=== PATIENT | female | born 1975 | race Caucasian/White ===

== ENCOUNTER 2019-03-18 12:52 | Outpatient (CLI) | payer BC ==
--- NOTE | 2019-03-18 13:46 | MMO ---
Bilateral MAMMO Bilat Diag [facility]. CLINICAL HISTORY: Patient is 43 years old and is seen for diagnostic exam. The patient has no family history of breast cancer. The patient has no personal history of cancer. VIEWS: The views performed were: bilateral craniocaudal; bilateral craniocaudal with tomosynthesis; bilateral mediolateral oblique; bilateral mediolateral oblique with tomosynthesis; and bilateral mediolateral. FILMS COMPARED: The present examination has been compared to prior imaging studies performed at [facility] on 02/18/2016, 02/24/2016 and 06/06/2017. MAMMOGRAM FINDINGS: There are scattered fibroglandular densities. There is a stable asymmetry seen in the left breast. Tomosynthesis images show the abnormality to represent superimpostion of normal breast parenchyma. There are no suspicious masses, suspicious calcifications, or new areas of architectural distortion. IMPRESSION: THERE IS NO MAMMOGRAPHIC EVIDENCE OF MALIGNANCY. A ROUTINE FOLLOW-UP MAMMOGRAM IN 1 YEAR IS RECOMMENDED. THE RESULTS OF THIS EXAM WERE SENT TO THE PATIENT. ACR BI-RADS Category 2 - Benign finding MAMMOGRAPHY NOTE: 1. A negative mammogram report should not delay a biopsy if a dominant of clinically suspicious mass is present. 2. Approximately 10% to 15% of breast cancers are not detected by mammography. 3. Adenosis and dense breasts may obscure an underlying neoplasm.
== END 2019-03-18 12:53 | disposition home or self-care (01) ==
LOC: BICMAMMO 12:52
PROVIDERS: ATTEND Physician Assistant
DX: R92.8 Other abnormal and inconclusive findings on diagnostic imaging of breast (principal)
CPT/HCPCS: 77066; G0279

== ENCOUNTER 2020-04-09 13:31 | Outpatient (CLI) | payer BC ==
--- NOTE | 2020-04-09 15:45 | MMO ---
Bilateral MAMMO Bilat Screen [facility]. CLINICAL HISTORY: Patient is 44 years old and is seen for screening. The patient has no family history of breast cancer. The patient has no personal history of cancer. VIEWS: The views performed were: bilateral craniocaudal with tomosynthesis and bilateral mediolateral oblique with tomosynthesis. FILMS COMPARED: The present examination has been compared to prior imaging studies performed at [facility] on 02/18/2016, 02/24/2016, 06/06/2017 and 03/18/2019. This study has been interpreted with the assistance of computer-aided detection. MAMMOGRAM FINDINGS: There are scattered fibroglandular densities. There is a stable focal asymmetry measuring 25 millimeters seen in the central region of the left breast. There are no suspicious masses, suspicious calcifications, or new areas of architectural distortion. IMPRESSION: THERE IS NO MAMMOGRAPHIC EVIDENCE OF MALIGNANCY. A ROUTINE FOLLOW-UP MAMMOGRAM IN 1 YEAR IS RECOMMENDED. THE RESULTS OF THIS EXAM WERE SENT TO THE PATIENT. ACR BI-RADS Category 2 - Benign finding MAMMOGRAPHY NOTE: 1. A negative mammogram report should not delay a biopsy if a dominant of clinically suspicious mass is present. 2. Approximately 10% to 15% of breast cancers are not detected by mammography. 3. Adenosis and dense breasts may obscure an underlying neoplasm. Reported by: INDIGO HANNA MD Electonically Signed: [id number]
== END 2020-04-09 13:32 | disposition home or self-care (01) ==
LOC: BICMAMMO 13:31
PROVIDERS: ATTEND Physician Assistant
DX: Z12.31 Encounter for screening mammogram for malignant neoplasm of breast (principal)
CPT/HCPCS: 77063; 77067

== ENCOUNTER 2021-04-13 11:16 | Outpatient (CLI) | payer BC | END 2021-04-13 11:17 | disposition home or self-care (01) | LOC: BICMAMMO 11:16 | PROVIDERS: ATTEND Physician Assistant | DX: Z12.31 Encounter for screening mammogram for malignant neoplasm of breast (principal) | CPT/HCPCS: 77063; 77067 ==

== ENCOUNTER 2022-02-14 16:25 | Outpatient (CLI) | payer BC | END 2022-02-14 16:26 | disposition home or self-care (01) | LOC: SCSRAD 16:25 | PROVIDERS: ATTEND Physician Assistant | DX: M25.561 Pain in right knee (principal); M25.461 Effusion, right knee; M25.462 Effusion, left knee; M25.861 Other specified joint disorders, right knee; M25.862 Other specified joint disorders, left knee | CPT/HCPCS: 73565 ==

== ENCOUNTER 2022-04-14 12:38 | Outpatient (CLI) | payer BC | END 2022-04-14 12:39 | disposition home or self-care (01) | LOC: BICMAMMO 12:38 | PROVIDERS: ATTEND Physician Assistant | DX: Z12.31 Encounter for screening mammogram for malignant neoplasm of breast (principal) | CPT/HCPCS: 77063; 77067 ==

== ENCOUNTER 2022-09-05 18:34 | Emergency (ER) | payer BC | END 2022-09-05 21:21 | disposition home or self-care (01) | LOC: ERS 18:34 | DX: S82.61XA Displaced fracture of lateral malleolus of right fibula, initial encounter for closed fracture (principal); W10.1XXA Fall (on)(from) sidewalk curb, initial encounter | CPT/HCPCS: 29515 ==

== ENCOUNTER 2022-09-30 09:19 | Observation (INO) | payer BC ==
[2022-09-30] MEDS ORDERED: Iopamidol 370 76% 100 ML VIAL ONE (10:44)
[2022-09-30 11:25] LABS: #Basophils 0.1 thou/uL (0.0-0.2); #Eosinphils 0.1 thou/uL (0.0-0.7); #Lymphocytes 1.5 thou/uL (1.20-3.40); #Monocytes 0.7 thou/uL (0.11-0.59); #Neutrophils 2.8 thou/uL (1.40-6.50); %Basophils 1.6 % (0.0-1.0); %Eosinophils 2.4 % (0.0-10.0); %Lymphocytes 28.5 % (21.0-51.0); %Monocytes 13.1 % (0.0-10.0); %Neutrophils 54.4 % (42.0-75.0); Hemoglobin 14.3 g/dL (12.0-16.0); Mean Corpuscular HGB CONC 34.4 g/dL (32.0-36.0); Mean Corpuscular Hemoglobin 31.2 pg (27.0-31.0); Mean Corpuscular Volume 90.7 fl (78.0-98.0); Mean Platelet Volume 8.3 fL (7.4-10.4); Platelet Count 462 10x3/uL (130-400); RBC Distribution Width 12.7 % (11.5-14.5); Red Blood Cell (RBC) Count 4.57 mill/uL (4.20-5.40); White Blood Cell (WBC) Count 5.1 10x3/uL (4.8-10.8)
[2022-09-30 11:40] LABS: BHCG - Serum Negative (NEGATIVE); Pregs Control Background? CLEAR/WHITE (CLR/WHITE); Pregs Control Bar Appear? YES (CONTROL BAR)
[2022-09-30] MEDS ORDERED: Prochlorperazine 10 MG/2 ML VIAL ONE (11:48)
[2022-09-30] MEDS ORDERED: Morphine 4 MG/ML VIAL ONE (11:48)
[2022-09-30 11:56] LABS: ALT (SGPT) 127 U/L (8-55); AST (SGOT) 108 U/L (5-34); Albumin 4.2 g/dL (3.5-5.0); Alkaline Phosphatase 56 U/L (40-110); Anion Gap 17 mmol/L (10-20); BUN (Urea Nitrogen) 24 mg/dL (7.0-18.7); Bilirubin, Total 0.8 mg/dL (0.2-1.2); CK (CPK) 51 U/L (29-168); Calc. Creatinine Clearance 0 mL/min (70-130); Calcium 10.2 mg/dL (7.8-10.44); Carbon Dioxide 25 mmol/L (22-29); Chloride 96 mmol/L (98-107); Estimated GFR 73; Globulin 3.5 g/dL (2.4-3.5); Glucose 102 mg/dL (70-105); Lipase 72 U/L (8-78); Magnesium 1.7 mg/dL (1.6-2.6); Potassium 3.6 mmol/L (3.5-5.1); Protein, Total 7.7 g/dL (6.0-8.3); Sodium 134 mmol/L (136-145)
[2022-09-30 12:03] LABS: Actual Bicarbonate (HCO3v) 24 mEq/L (22-28); Base Excess 0.3 mEq/L (-2.0 to +3.0); Calcium, Ionized (venous) 1.11 mmol/L (1.16-1.32); Chloride (VBG) 99 mmol/L (98-106); Potassium (VBG) 3.68 mmol/L (3.70-5.30); Sodium 135.5 mmol/L (133-146); pH (venous) 7.46 (7.32-7.43)
[2022-09-30 13:48] LABS: Acetaminophen Less than 10.0 mcg/mL (10.0-30.0)
[2022-09-30 14:05] LABS: HBSAg Index 0.24 S/CO (0-0.99); Hep A IgM AB Non-Reactive (NonReactive); Hep A IgM S/CO 0.14 S/CO (0-0.79); Hep B Surf Ag Non-Reactive S/CO (NonReactive); Hep C IgG Ab Non-Reactive (NonReactive); Hep C Index 0.07 S/CO (0-0.79); Hepatitis B Core IgM Abs Non-Reactive (NonReactive)
[2022-09-30 14:51] LABS: SARS-CoV-2 NAA Rapid Test Not Detected (NotDetected)
[2022-09-30] MEDS ORDERED: Ondansetron PF 4 MG/2 ML Vial ONE (17:11)
[2022-09-30] MEDS ORDERED: Acetaminophen 325 MG TAB PO PRN (17:55)
[2022-09-30] MEDS: Enoxaparin Sodium 40 MG/0.4 ML SYRINGE SC SCH ×3 (21:29→21:35)
[2022-09-30] MEDS: Famotidine 20 MG TAB PO SCH (21:29)
[2022-09-30] MEDS: Sodium Chloride 0.9% 1,000 ML IV SCH (21:32)
[2022-09-30] MEDS: Ondansetron PF 4 MG/2 ML Vial IVP PRN (21:44)
[2022-10-01] MEDS: Ondansetron PF 4 MG/2 ML Vial IVP PRN ×2 (03:12→09:26)
[2022-10-01] MEDS: Sodium Chloride 0.9% 1,000 ML IV SCH ×2 (04:37→09:26)
[2022-10-01] MEDS: Levothyroxine Sodium 50 MCG TAB PO SCH (05:41)
[2022-10-01] MEDS: clonazePAM 0.5 MG TAB PO SCH (05:41)
[2022-10-01] MEDS: busPIRone HCl 5 MG TAB PO SCH (08:41)
[2022-10-01] MEDS: Nebivolol HCl 5 MG TAB PO SCH (08:41)
[2022-10-01] MEDS: FLUoxetine HCl 20 MG CAP PO SCH ×2 (08:42→20:38)
[2022-10-01] MEDS: Fenofibrate 48 MG TAB PO SCH (08:42)
[2022-10-01] MEDS: Fenofibrate Nanocrystallized 145 MG TAB PO SCH (08:42)
[2022-10-01] MEDS: Atorvastatin Calcium 40 MG TAB PO SCH (08:42)
[2022-10-01] MEDS: Loratadine 10 MG TAB PO SCH (08:42)
[2022-10-01] MEDS: Famotidine 20 MG TAB PO SCH ×2 (08:42→20:38)
[2022-10-01] MEDS: Lisinopril 10 MG TAB PO SCH (08:44)
[2022-10-01] MEDS ORDERED: FLU VACC QS2022-23(6MOS UP)/PF 60 MCG/0.5 ML SYRINGE IM ONE (09:00)
[2022-10-01] MEDS ORDERED: FENOFIBRATE 40 MG PO SCH (09:00)
[2022-10-01] MEDS ORDERED: Sodium Chloride 0.9% 500 ML IV SCH (23:15)
[2022-10-02] MEDS: clonazePAM 0.5 MG TAB PO SCH ×2 (00:08→10:00)
[2022-10-02] MEDS: Sodium Chloride 0.9% 1,000 ML IV SCH ×2 (03:15)
[2022-10-02 04:49] VITALS: BMI 46.3
[2022-10-02] MEDS: Levothyroxine Sodium 50 MCG TAB PO SCH (05:34)
[2022-10-02] MEDS: busPIRone HCl 5 MG TAB PO SCH (11:05)
[2022-10-02] MEDS: Famotidine 20 MG TAB PO SCH (11:05)
[2022-10-02] MEDS: FLUoxetine HCl 20 MG CAP PO SCH (11:06)
[2022-10-02] MEDS: Lisinopril 10 MG TAB PO SCH (11:07)
[2022-10-02] MEDS: Fenofibrate Nanocrystallized 145 MG TAB PO SCH (11:07)
[2022-10-02] MEDS: Loratadine 10 MG TAB PO SCH (11:07)
[2022-10-02] MEDS: Atorvastatin Calcium 40 MG TAB PO SCH (11:07)
[2022-10-02] MEDS: Fenofibrate 48 MG TAB PO SCH (11:07)
[2022-10-02] MEDS: Nebivolol HCl 5 MG TAB PO SCH (11:07)
[2022-10-02 12:42] VITALS: BP 113/70; TEMP 97.7
== END 2022-10-02 15:55 | disposition home or self-care (01) ==
LOC: SUATTDRO 09:19 → ERS 09:19 → T4-B 18:53
PROVIDERS: ADMIT Internal Medicine; ATTEND Internal Medicine
DX: R11.2 Nausea with vomiting, unspecified (principal); I10 Essential (primary) hypertension; E78.5 Hyperlipidemia, unspecified; S82.61XA Displaced fracture of lateral malleolus of right fibula, initial encounter for closed fracture; N13.30 Unspecified hydronephrosis; E66.9 Obesity, unspecified; Z68.42 Body mass index [BMI] 45.0-49.9, adult; Z79.890 Hormone replacement therapy; Z79.899 Other long term (current) drug therapy; Z20.822 Contact with and (suspected) exposure to COVID-19; W18.30XA Fall on same level, unspecified, initial encounter
CPT/HCPCS: 71046; 74177; 76705; 80053; 80074; 80143; 82550; 82805; 83605; 83690; 83735; 84703; 85025; 87040; 87804; 93005; 96361; 96372; 96374; 96375; 96376; 80307; G0378; J0780; J1650; J2270; J2405; J7030; J7050; Q9967; U0002

== ENCOUNTER 2024-04-24 07:54 | Outpatient (CLI) | payer BC | END 2024-04-24 07:55 | disposition home or self-care (01) | LOC: BICMAMMO 07:54 | PROVIDERS: ATTEND Physician Assistant | DX: Z12.31 Encounter for screening mammogram for malignant neoplasm of breast (principal) | CPT/HCPCS: 77063; 77067 ==

== ENCOUNTER 2025-04-25 07:44 | Outpatient (CLI) | payer BC | END 2025-04-25 07:45 | disposition home or self-care (01) | LOC: BICMAMMO 07:44 | PROVIDERS: ATTEND Physician Assistant | DX: Z12.31 Encounter for screening mammogram for malignant neoplasm of breast (principal); N63.11 Unspecified lump in the right breast, upper outer quadrant | CPT/HCPCS: 77063; 77067 ==